=== PATIENT | male | born 1970 | race Caucasian/White ===

== ENCOUNTER 2017-04-16 22:27 | Emergency (ER) | payer SELFPAY ==
[2017-04-16] MEDS ORDERED: Lidocaine 1% 20 ML MDV ONE (22:42)
[2017-04-16] MEDS ORDERED: Adacel (T-DAP) 0.5 ML VIAL ONE (22:55)
[2017-04-16] MEDS ORDERED: Sulfameth/Trimethoprim DS 800-160mg TAB ONE (22:58)
[2017-04-16] MEDS ORDERED: Ibuprofen 200 MG TAB ONE (22:58)
== END 2017-04-16 23:08 | disposition home or self-care (01) ==
LOC: NAV ERS 22:27
DX: L02.415 Cutaneous abscess of right lower limb (principal); L03.115 Cellulitis of right lower limb; F17.210 Nicotine dependence, cigarettes, uncomplicated
CPT/HCPCS: 10060; 90715; J2001

== ENCOUNTER 2021-02-15 16:17 | Emergency (ER) | payer SELFPAY ==
[2021-02-15] MEDS ORDERED: Ondansetron ODT 4 MG TAB ONE (16:56)
== END 2021-02-15 17:10 | disposition home or self-care (01) ==
LOC: NAV ERS 16:17
DX: R14.1 Gas pain (principal); R19.7 Diarrhea, unspecified; R11.2 Nausea with vomiting, unspecified; F17.210 Nicotine dependence, cigarettes, uncomplicated
CPT/HCPCS: 99283; Q0162

== ENCOUNTER 2023-06-29 20:26 | Emergency (ER) | payer BC, SELFPAY ==
[2023-06-29] MEDS ORDERED: diphenhydrAMINE 25 MG CAP ONE (21:04)
== END 2023-06-29 21:14 | disposition home or self-care (01) ==
LOC: NAV ERS 20:26
DX: L25.9 Unspecified contact dermatitis, unspecified cause (principal); F17.210 Nicotine dependence, cigarettes, uncomplicated
CPT/HCPCS: 99282